=== PATIENT | female | born 1970 | race African-American/Black ===

== ENCOUNTER 2016-06-23 00:05 | Emergency (ER) | payer OTHER ==
[~2016-06-23] VITALS: Ht 162.6 cm; Wt 91.9 kg
[~2016-06-23 00:05] MED LIST: AMLODIPINE BESYL5 MG PO; ASPIR 8181 M1 PO; BIOTIN1 MG PO; CELLCEPT500 MG PO; CYMBALTA60 MG PO; ERGOCALCIF50000 UNIT PO; HYCODAN SYRUP480 ML PO; HYDROXYZINE HCL10 MG PO; IBUPROFEN800 MG PO; JANUMET XR 1001 EACH PO; LEVO-T50 MCG PO; LISINOPRIL5 MG PO; MEDROL DOSEPAK4 MG PO; NAPROSYN500 MG PO; NAPROXEN500 MG PO; NEURONTIN100 MG PO; NOVOLIN,HU100 UNITS/ SC; NOVOLOG 10100 UNITS/ SC; NYSTATIN100000 UN1 PO; PERCOCET 5/31 TABLET PO; PLAQUENIL200 MG PO; PREDNISONE10 MG PO; PREDNISONE20 MG PO; TESSALON PERLE100 MG PO; ULTRAM50 MG PO; VENTOLIN HFA18 GM IH; VITAMIN D35000 UNIT PO; ZITHROMAX Z-PA250 MG PO
[2016-06-23 02:55] VITALS: BP 176/78
== END 2016-06-23 02:57 | disposition home or self-care (01) ==
LOC: EME 00:05
DX: M40.202 Unspecified kyphosis, cervical region (principal); E24.9 Cushing's syndrome, unspecified; M32.9 Systemic lupus erythematosus, unspecified; M79.7 Fibromyalgia; I10 Essential (primary) hypertension; E03.9 Hypothyroidism, unspecified; E11.9 Type 2 diabetes mellitus without complications; Z79.4 Long term (current) use of insulin; J45.909 Unspecified asthma, uncomplicated
CPT/HCPCS: 94640; 99281; 99284

== ENCOUNTER 2016-11-29 16:33 | Emergency (ER) | payer OTHER ==
[~2016-11-29] VITALS: Ht 162.6 cm; Wt 93.3 kg
[2016-11-29 17:22] LABS: HEMATOCRIT 37.5 % (36.0-46.0); MCH 30.8 PG (29.0-34.0); MCHC 34.1 G/DL (30.0-36.0); MCV 90.4 FL (83-99); MEAN PLAT.VOLUME 9.7 uM^3 (9.5-12.4); PLATELET COUNT 233 K/uL (156-360); RBC DIS.WIDTH-SD 39.5 % (39-53); RED BLOOD COUNT 4.15 M/uL (3.80-5.20); WHITE BLOOD COUNT 6.9 K/uL (4.1-10.2)
[2016-11-29 17:32] LABS: CHLORIDE 102 mEq/L (99-109); D-DIMER ELISA < 150.00 ng/mLDDU (<230); POTASSIUM 3.7 mEq/L (3.7-5.4); SODIUM 138 mEq/L (136-147)
[2016-11-29 17:34] LABS: GLUCOSE 162 mg/dL (70-99)
[2016-11-29 17:35] LABS: ANION GAP 12 MEQ/L (2-14)
[2016-11-29 17:38] LABS: GFR ESTIMATE (CALCULATED) > 59 mL/min/; UREA NITROGEN (BUN) 15 mg/dL (9-23)
[2016-11-29 17:41] LABS: TROP-I INTERPRETATION NEGATIVE; TROPONIN-I < 0.01 ng/mL (0.0-0.30)
[2016-11-29 18:38] LABS: TROP-I INTERPRETATION NEGATIVE; TROPONIN-I < 0.01 ng/mL (0.0-0.30)
[2016-11-29 21:07] LABS: TROP-I INTERPRETATION NEGATIVE; TROPONIN-I < 0.01 ng/mL (0.0-0.30)
[2016-11-29 21:10] VITALS: BP 129/59
== END 2016-11-29 21:18 | disposition home or self-care (01) ==
LOC: EME 16:33
PROVIDERS: Physician Assistant
DX: R07.9 Chest pain, unspecified (principal); I10 Essential (primary) hypertension; E11.9 Type 2 diabetes mellitus without complications; J45.909 Unspecified asthma, uncomplicated; M32.9 Systemic lupus erythematosus, unspecified; Z79.4 Long term (current) use of insulin; M79.7 Fibromyalgia; Z88.0 Allergy status to penicillin
CPT/HCPCS: 71020; 80048; 84484; 85027; 85379; 93005; 99281; 99284

== ENCOUNTER 2017-01-27 10:56 | Emergency (ER) | payer OTHER ==
[~2017-01-27] VITALS: Ht 162.6 cm; Wt 91.4 kg
[2017-01-27] MEDS ORDERED: LIDODERM 5% P1 PATCH TD (14:04)
[2017-01-27 14:10] VITALS: BP 124/76
== END 2017-01-27 14:19 | disposition home or self-care (01) ==
LOC: EME 10:56
DX: K58.0 Irritable bowel syndrome with diarrhea (principal); M25.512 Pain in left shoulder; J45.909 Unspecified asthma, uncomplicated; E11.9 Type 2 diabetes mellitus without complications; M79.7 Fibromyalgia; I10 Essential (primary) hypertension; M32.9 Systemic lupus erythematosus, unspecified; Z88.0 Allergy status to penicillin
CPT/HCPCS: 73030; 74020; 99281; 99284

== ENCOUNTER 2017-03-14 17:59 | Observation (INO) | payer OTHER ==
[~2017-03-14] VITALS: Ht 162.6 cm; Wt 85.8 kg
[~2017-03-14 17:59] MED LIST changes: -BIOTIN1 MG PO; +BIOTIN1000 MCG PO; -LEVO-T50 MCG PO; +LIDODERM 5% P1 PATCH TD; +SYNTHROID50 MCG PO
[2017-03-14 18:44] LABS: HEMATOCRIT 37.9 % (36.0-46.0); HEMOGLOBIN 12.9 G/DL (11.9-15.5); MCH 30.4 PG (29.0-34.0); MCV 89.2 FL (83-99); PLATELET COUNT 246 K/uL (156-360); RBC DIS.WIDTH-CV 11.9 % (11.8-14.6); RBC DIS.WIDTH-SD 38.5 % (39-53); RED BLOOD COUNT 4.25 M/uL (3.80-5.20); WHITE BLOOD COUNT 5.9 K/uL (4.1-10.2)
[2017-03-14 18:53] LABS: CHLORIDE 104 mEq/L (99-109); POTASSIUM 3.7 mEq/L (3.7-5.4); SODIUM 138 mEq/L (136-147)
[2017-03-14 18:55] LABS: GLUCOSE 186 mg/dL (70-99)
[2017-03-14 18:59] LABS: CREATININE 0.7 mg/dL (0.6-1.3); GFR ESTIMATE (CALCULATED) > 59 mL/min/; UREA NITROGEN (BUN) 12 mg/dL (9-23)
[2017-03-14 19:06] LABS: TROP-I INTERPRETATION NEGATIVE; TROPONIN-I < 0.01 ng/mL (0.0-0.30)
[2017-03-14] MEDS ORDERED: LISINOPRIL5 MG PO (19:34)
[2017-03-14] MEDS ORDERED: ULTRAM50 MG PO (19:35)
[2017-03-14] MEDS ORDERED: CELLCEPT500 MG PO (19:35)
[2017-03-14] MEDS ORDERED: COLCRYS0.6 MG PO (19:36)
[2017-03-14] MEDS ORDERED: HUMALOG MI100 UNIT/5 SC (19:38)
[2017-03-14 21:00] LABS: D-DIMER ELISA < 150.00 ng/mLDDU (<230)
[2017-03-14 21:35] VITALS: BP 151/79
[2017-03-15 01:23] LABS: TROP-I INTERPRETATION NEGATIVE; TROPONIN-I < 0.01 ng/mL (0.0-0.30)
[2017-03-15 03:40] VITALS: BP 148/76
[2017-03-15 05:53] LABS: HEMATOCRIT 37.4 % (36.0-46.0); HEMOGLOBIN 12.5 G/DL (11.9-15.5); MCH 30.7 PG (29.0-34.0); MCHC 33.4 G/DL (30.0-36.0); MCV 91.9 FL (83-99); PLATELET COUNT 238 K/uL (156-360); RBC DIS.WIDTH-CV 11.9 % (11.8-14.6); RBC DIS.WIDTH-SD 40.6 % (39-53); RED BLOOD COUNT 4.07 M/uL (3.80-5.20); WHITE BLOOD COUNT 5.9 K/uL (4.1-10.2)
[2017-03-15 06:16] LABS: ALBUMIN 3.7 G/DL (3.2-4.8); ALKALINE PHOSPHATASE 55 IU/L (3-129); ALT (GPT) 16 IU/L (3-49); AST (GOT) 13 IU/L (2-34); CHLORIDE 107 MEQ/L (99-109); CREATININE 0.5 MG/DL (0.6-1.3); GFR ESTIMATE (CALCULATED) > 59 mL/min/; POTASSIUM 4.1 MEQ/L (3.7-5.4); SODIUM 140 MEQ/L (136-147); TOTAL BILIRUBIN 0.6 MG/DL (0.0-1.0); UREA NITROGEN (BUN) 10 mg/dL (9-23)
[2017-03-15 06:18] LABS: TROP-I INTERPRETATION NEGATIVE; TROPONIN-I < 0.01 ng/mL (0.0-0.30)
[2017-03-15 06:28] LABS: GLUCOSE 112 mg/dL (70-99)
[2017-03-15 07:37] VITALS: BP 133/74
[2017-03-15 10:43] LABS: HEMOGLOBIN A1c (GLYCOHEMOGLOB) 9.6 % (Below 5.7)
[2017-03-15] MEDS ORDERED: ULTRAM50 MG PO (11:47)
[2017-03-15] MEDS ORDERED: PEPCID20 MG PO (12:21)
[2017-03-15 12:40] VITALS: BP 137/71
[2017-03-16] MEDS ORDERED: NORCO 5/3251 TABLET PO (10:52)
[2017-03-16] MEDS ORDERED: PREDNISONE50 MG PO (10:52)
== END 2017-03-15 13:40 | disposition home or self-care (01) ==
LOC: EME 17:59 → EDOF 20:13 → 5WEST 20:13 → EDOF 20:13 → ENRESERV 20:23 → 5WEST 21:22
PROVIDERS: Internal Medicine
DX: R07.9 Chest pain, unspecified (principal); R94.31 Abnormal electrocardiogram [ECG] [EKG]; M32.9 Systemic lupus erythematosus, unspecified; I10 Essential (primary) hypertension; E11.65 Type 2 diabetes mellitus with hyperglycemia; J45.909 Unspecified asthma, uncomplicated; Z79.4 Long term (current) use of insulin; G89.4 Chronic pain syndrome; E03.9 Hypothyroidism, unspecified; M79.7 Fibromyalgia; E66.9 Obesity, unspecified; Z68.32 Body mass index [BMI] 32.0-32.9, adult; Z79.899 Other long term (current) drug therapy; Z82.0 Family history of epilepsy and other diseases of the nervous system; Z82.49 Family history of ischemic heart disease and other diseases of the circulatory system; Z88.0 Allergy status to penicillin
CPT/HCPCS: 71046; 80048; 80053; 82948; 83036; 84484; 85027; 85379; 93005; 99202; 99281; 99285; G0378; J1644; J1815; J2270; J7030; J7517

== ENCOUNTER 2017-03-16 09:32 | Emergency (ER) | payer OTHER ==
[~2017-03-16] VITALS: Ht 162.6 cm; Wt 83.6 kg
[~2017-03-16 09:32] MED LIST changes: +COLCRYS0.6 MG PO; +HUMALOG MI100 UNIT/5 SC; +PEPCID20 MG PO
[2017-03-16 09:45] VITALS: BP 138/97
[2017-03-16] MEDS ORDERED: PREDNISONE50 MG PO (10:52)
[2017-03-16] MEDS ORDERED: NORCO 5/3251 TABLET PO (10:52)
== END 2017-03-16 11:05 | disposition home or self-care (01) ==
LOC: EME 09:32
DX: M54.5 Low back pain (principal); E11.9 Type 2 diabetes mellitus without complications; M79.7 Fibromyalgia; M32.9 Systemic lupus erythematosus, unspecified; G47.30 Sleep apnea, unspecified; Z79.4 Long term (current) use of insulin; Z88.0 Allergy status to penicillin
CPT/HCPCS: 99281; 99283; J2270

== ENCOUNTER 2017-04-16 18:59 | Emergency (ER) | payer OTHER ==
[~2017-04-16] VITALS: Ht 162.6 cm; Wt 91.0 kg
[~2017-04-16 18:59] MED LIST changes: +NORCO 5/3251 TABLET PO; +PREDNISONE50 MG PO
[2017-04-16] MEDS ORDERED: MOBIC7.5 MG PO (20:00)
[2017-04-16 21:22] VITALS: BP 153/78
== END 2017-04-16 21:24 | disposition home or self-care (01) ==
LOC: EME 18:59
DX: M17.12 Unilateral primary osteoarthritis, left knee (principal); M25.861 Other specified joint disorders, right knee; Z87.39 Personal history of other diseases of the musculoskeletal system and connective tissue; Z90.89 Acquired absence of other organs; Z88.0 Allergy status to penicillin
CPT/HCPCS: 73564; 99281; 99283